=== PATIENT | female | born 2000 | race Caucasian/White ===

== ENCOUNTER 2021-11-22 15:19 | Emergency (ER) | payer OTHER ==
[~2021-11-22] VITALS: Ht 160 cm; Wt 166.5 kg
[2021-11-22 15:21] VITALS: BP 151/105
[2021-11-22] MEDS ORDERED: predniSONE 20 MG TAB PO ONE (15:30)
[2021-11-22] MEDS ORDERED: ALBUTEROL 0.083% 2.5 MG/3 ML NEBU INH ONE (15:30)
[2021-11-22] MEDS ORDERED: ALBUTEROL SULFATE/IPRATROPIU 3 ML SOL IH ONE (15:30)
--- NOTE | 2021-11-22 16:04 | NUR ---
XR AT PT BEDSIDE
[2021-11-22] MEDS ORDERED: KETOROLAC 60 MG/2 ML VIAL IM ONE (17:55)
[2021-11-22] MEDS ORDERED: ONDANSETRON 4 MG ODT PO ONE (17:55)
--- NOTE | 2021-11-22 19:19 | NUR ---
Pt report given to RICHARD KRISHNA. Transfer of care at this time.
[2021-11-22] MEDS ORDERED: ONDA8TAB87 PO ×2 (19:34→22:18)
[2021-11-22] MEDS ORDERED: PRED20TA5 PO ×2 (19:34→22:18)
[2021-11-22] MEDS ORDERED: IBUP-2213 PO ×2 (19:34→22:18)
[2021-11-22] MEDS ORDERED: ALBU0.0912 INH ×2 (19:34→22:18)
--- NOTE | 2021-11-22 19:45 | NUR ---
PREPARING FOR DISCHARGE. PT DOES NOT WANT TO LEAVE. "I NEED FLUIDS, I'M DEHYDRATED" "THEY TOLD ME MY OXYGEN LEVEL WENT LOW AND I'M SCARED ABOUT WHEN I GO HOME" REASSURANCE GIVEN. SPOKE WITH PT'S GRANDMOTHER RE: NEED FOR RX'S . PT STATES "I'VE BEEN GETTING WEIGHT LOSS INJECTIONS AND THEY TOTALLY TOOK MY APPETITE AWAY. MY LAST INJECTION WAS 2 WEEKS AGO".
[2021-11-22] MEDS ORDERED: NACL 0.9% 1,000 ML IV ONE (20:05)
--- NOTE | 2021-11-22 20:50 | NUR ---
AMBULATED TO BR WITH STEADY GAIT
--- NOTE | 2021-11-22 20:55 | NUR ---
RETURNED TO BED, MADE COMFORTABLE
--- NOTE | 2021-11-22 21:15 | NUR ---
IV INFILTRATED. 22G ESTABLISHED RIGHT FOOT
[2021-11-22 22:10] VITALS: BP 125/74
--- NOTE | 2021-11-22 22:10 | NUR ---
Patient discharged with v/s stable. Written and verbal after care instructions given and explained. Patient alert, oriented and verbalized understanding of instructions. Ambulatory with steady gait. All questions addressed prior to discharge. ID band removed. Patient advised to follow up with PMD. Rx of PROVENTIL IBUPROFEN ZOFRAN DELTASONE given. Patient educated on indication of medication including possible reaction and side effects. Opportunity to ask questions provided and answered.
== END 2021-11-22 22:26 | disposition home or self-care (01) ==
LOC: MED 15:19
DX: J45.901 Unspecified asthma with (acute) exacerbation (principal); R11.2 Nausea with vomiting, unspecified; F17.200 Nicotine dependence, unspecified, uncomplicated; Z98.890 Other specified postprocedural states
CPT/HCPCS: 36600; 71045; 82803; 93005; 96360; 96372; 99285; J1885; J7030; J7512; Q0162

== ENCOUNTER 2021-11-25 15:57 | Emergency (ER) | payer OTHER ==
[~2021-11-25] VITALS: Ht 157.5 cm; Wt 168.7 kg
[~2021-11-25 15:57] MED LIST: ALBU0.0912 INH; IBUP-2213 PO; ONDA8TAB87 PO; PRED20TA5 PO
[2021-11-25 16:04] VITALS: BP 150/99
--- NOTE | 2021-11-25 16:37 | NUR ---
SPOKE TO PT IN LOBBY ABOUT URINE SAMPLE. PT IS UNABLE TO PROVIDE SAMPLE AT THIS TIME. PT ENCOURAGED AND EDUCATED ABOUT THE NEED FOR THE RESULTS.
--- NOTE | 2021-11-25 18:06 | NUR ---
LAB ATTEMPTED TO DRAW BLOOD AND WERE UNABLE TO AT THIS TIME.
[2021-11-25] MEDS ORDERED: ALUMINUM HYD/MAG/SIMETHICONE 30 ML UDC PO ONE (19:35)
[2021-11-25] MEDS ORDERED: FAMOTIDINE 20 MG TAB PO ONE (19:35)
--- NOTE | 2021-11-25 20:09 | NUR ---
PT NSTILL UNABLE TO PROVIDE UA. MEDICATED S ORDERE
--- NOTE | 2021-11-25 20:41 | NUR ---
PT TAKEN TO BED #3
[2021-11-25 21:17] LABS: BASOPHILS # (AUTO) 0.1 K/uL (0.00-0.22); BASOPHILS % (AUTO) 0.3 % (0.0-2.0); EOSINOPHILS % (AUTO) 0.1 % (0.0-4.0); HEMATOCRIT 44.8 % (36-48); HEMOGLOBIN 14.2 g/dL (12.0-16.0); LYMPHOCYTES # (AUTO) 5.6 K/uL (2.5-16.5); LYMPHOCYTES % (AUTO) 32.1 % (20.5-51.1); MEAN CORPUSCULAR HEMOGLOBIN 24 pg (27-31); MEAN CORPUSCULAR HGB CONC 32 g/dL (33-37); MEAN CORPUSCULAR VOLUME 74.5 fL (80-94); MONOCYTES # (AUTO) 1.2 K/uL (0.8-1.0); MONOCYTES % (AUTO) 6.7 % (1.7-9.3); NEUTROPHILS # (AUTO) 10.7 K/uL (1.8-7.7); NEUTROPHILS % (AUTO) 60.8 % (42.2-75.2); PLATELET COUNT (AUTO) 532 K/uL (140-450); RED BLOOD CELL COUNT(AUTO) 6.01 MIL/uL (4.20-5.40); RED CELL DISTRIBUTION WIDTH 16.1 % (11.6-13.7); WHITE BLOOD COUNT (AUTO) 17.6 K/uL (4.8-10.8)
--- NOTE | 2021-11-25 21:30 | NUR ---
IV ACCESS ESTABLISHED TO LEFT WRIST. PATIENT RECEIVED ROCEPHIN IN 5% DEXTROSE, NORMAL SALINE. PATIENT TOLERATED MEDICATION OK. PATIENT NOW ASLEEP AND WILL CONTINUE TO MONITOR.
[2021-11-25 21:37] LABS: ALBUMIN 4.5 g/dL (3.4-5.0); ANION GAP 13.1 (8-16); CARBON DIOXIDE 30.1 mmol/L (21-32); CREATININE 0.7 mg/dL (0.6-1.3); POTASSIUM 3.2 mmol/L (3.5-5.1); TOTAL BILIRUBIN 0.9 mg/dL (0.0-1.0)
[2021-11-25] MEDS ORDERED: NACL 0.9% 1,000 ML IV ONE (21:55)
[2021-11-25 21:56] LABS: APPEARANCE,URINE SL CLOUDY (CLEAR); BILIRUBIN,URINE 2+ (NEGATIVE); BLOOD, URINE 2+ (NEGATIVE); COLOR,URINE YELLOW (YELLOW); LEUKOCYTE ESTERASE ,URINE TRACE (NEGATIVE); NITRITE, URINE NEGATIVE (NEGATIVE); UGLUCOSE TRACE (NEGATIVE)
[2021-11-25 21:58] LABS: RBC,URINE 50-80 /HPF (0-5); WBC,URINE 0-5 /HPF (0-5)
[2021-11-25] MEDS ORDERED: POTASSIUM CHLORIDE 10 MEQ TABER PO ONE (22:00)
[2021-11-25] MEDS ORDERED: cefTRIAXone 1,000 MG VIAL ONE (22:50)
--- NOTE | 2021-11-25 23:37 | NUR ---
TAKEN TO CT
--- NOTE | 2021-11-26 | NUR ---
PT RETURNED FROM CT
[2021-11-26] MEDS ORDERED: NITR100C7 PO (01:55)
[2021-11-26] MEDS ORDERED: ACET-10509 PO (01:55)
[2021-11-26] MEDS ORDERED: MAG-27 PO (01:55)
[2021-11-26 02:12] VITALS: BP 144/96
== END 2021-11-26 00:20 | disposition home or self-care (01) ==
LOC: MED 15:57
DX: K52.9 Noninfective gastroenteritis and colitis, unspecified (principal); N39.0 Urinary tract infection, site not specified; J45.909 Unspecified asthma, uncomplicated; Z98.890 Other specified postprocedural states; Z79.899 Other long term (current) drug therapy; Z79.1 Long term (current) use of non-steroidal anti-inflammatories (NSAID)
CPT/HCPCS: 36415; 74177; 80053; 81001; 81025; 83690; 85025; 96361; 96374; 99285; J0696; J7030; Q9967